=== PATIENT | female | born 1980 | race Caucasian/White ===

== ENCOUNTER 2019-02-01 07:23 | Day surgery (SDC) | payer SELFPAY ==
[2019-01-29 10:53] VITALS: BMI 22.7
[2019-02-01] MEDS ORDERED: LIDOCAINE HCL 1%, 10 MG/ML (20ML VIAL) ONE (08:12)
[2019-02-01] MEDS ORDERED: EPINEPHrine/PF 1 MG/1 ML (1:1,000) AMPULE ONE (08:12)
[2019-02-01] MEDS ORDERED: LIDOCAINE 1%/EPI 1:100000 (20 ML MULTI DOSE VIAL) ONE ×2 (08:12→09:20)
[2019-02-01] MEDS ORDERED: ceFAZolin SODIUM 1 GM VIAL ONE ×3 (08:52→09:22)
[2019-02-01] MEDS ORDERED: GENTAMICIN SO4 80 MG/2 ML VIAL ONE (08:52)
[2019-02-01] MEDS ORDERED: PROPOFOL 20 ML ONE ×2 (08:56)
[2019-02-01] MEDS ORDERED: SUCCINYLCHOLINE CHLORIDE 200 MG/10 ML SYRINGE ONE (08:56)
[2019-02-01] MEDS ORDERED: fentaNYL CITRATE 250 MCG/5 ML VIAL ONE (08:56)
[2019-02-01] MEDS ORDERED: MIDAZOLAM HCL 2 MG/2 ML SINGLE DOSE VIAL ONE (08:57)
[2019-02-01] MEDS ORDERED: EPHEDRINE SULFATE/0.9% NACL/PF 50 MG/10 ML SYRINGE NR ONE (08:57)
[2019-02-01] MEDS ORDERED: BUPIVACAINE HCL/PF 2.5 MG/ML - 30 ML VIAL IJ ONE (09:20)
[2019-02-01] MEDS ORDERED: ONDANSETRON 4 MG/2 ML VIAL ONE ×2 (09:22→11:27)
[2019-02-01] MEDS ORDERED: DEXAMETHASONE SOD PHOSPHATE 4 MG/1 ML VIAL ONE (09:22)
[2019-02-01] MEDS ORDERED: ROCURONIUM BROMIDE 50 MG/5 ML SYRINGE ONE (10:49)
--- NOTE | 2019-02-01 11:16 | OP ---
Operative Note - Note: Operative Date: 02/01/19 Pre-Operative Diagnosis: Bilateral acquired chest wall deformity status post bilateral mastectomy. History of textured implant devices Operation: 1. Right breast capsulotomy, removal and replacement of right breast implant. 2. Left breast capsulotomy, removal and replacement of left breast implant. 3. Subcutaneous tissue transfer to both breasts for reconstructive purposes Implants: as dictated Post-Operative Diagnosis: Same as Pre-op Surgeon: [employer] Principal: Kate Morgan Anesthesiologist/WEAPONS ENGINEER: Michelle Tariq Anesthesia: General, Local Specimens Removed: bilateral breast implants (textured), bilateral capsules Estimated Blood Loss (mls): 20 (ml) Fluid Volume Replaced (mls): 600 (ml LR) Operative Report Dictated: Yes
[2019-02-01] MEDS ORDERED: ONDANSETRON 4 MG/2 ML VIAL IVPUSH ONE (11:23)
[2019-02-01] MEDS ORDERED: oxyCODONE HCL 5 MG TABLET PO PRN (12:29)
[2019-02-01] MEDS ORDERED: ONDANSETRON 4 MG/2 ML VIAL IVPUSH PRN (12:29)
[2019-02-01] MEDS ORDERED: ACETAMINOPHEN 325 MG TABLET (FP) PO PRN (12:29)
[2019-02-01] MEDS ORDERED: LACTATED RINGERS SOLUTION 1,000 ML IV SCH (12:30)
[2019-02-01 14:29] VITALS: PULSE 61; TEMP 98.2
[2019-02-01 14:34] VITALS: BP 105/66
--- NOTE | 2019-02-02 18:30 | OP ---
DATE OF OPERATION: 02/01/2019 SURGEON: Edwar Leal MD MANUFACTURING PROCESS ENGINEER SURGEON: RIRI Mccoy PREOPERATIVE DIAGNOSES: 1. Bilateral acquired chest wall deformity status post bilateral mastectomy. 2. History of textured implant devices. POSTOPERATIVE DIAGNOSES: 1. Bilateral acquired chest wall deformity status post bilateral mastectomy. 2. History of textured implant devices. PROCEDURES: 1. Right breast capsulotomy removal and replacement of right breast implant. 2. Left breast capsulotomy removal and replacement of left breast implant. 3. Subcutaneous tissue transfer to both breasts for reconstructive purposes. OPERATIVE INDICATION: Patient is a young woman who underwent breast reconstruction after bilateral mastectomy and had textured shaped devices placed in a subglandular position. The risks and benefits of surgical versus nonsurgical alternatives as well as material complications were described to the patient regarding textured implant removal. This patient decided that she desired to have her implants and capsules removed for safety purposes. Patient was informed of the FDA and ASPS recommendations but decided to proceed anyway. OPERATIVE PROCEDURE IN DETAIL: Patient was taken to the operating room, and after induction of general anesthesia in supine position, both arms were extended and padded. Venodyne boots were placed. The entire chest wall was prepped with ChloraPrep solution over itself entire extent. At this point, the inframammary incisions, which had been made for the mastectomy, were then injected with 1% local lidocaine anesthesia with 1:100,000 epinephrine. At this point, the incision on the right breast, after time-out, was incised down through the skin, to subcutaneous tissue, through the subcutaneous tissue, down to the underlying capsule. At this point, a capsulectomy was performed around the textured device on the anterior position over the anterior extent of the capsule itself and on the posterior surface. More than 50% of the capsule was removed from the overlying muscle. The portion of the capsule, which contained Alloderm and no evidence of problems was left in place for thickness. At this point, the capsule itself was cauterized using the bipolar electrocautery, and all of the remaining capsule was cauterized. At this point, copious irrigation of the pocket was performed after removal of the implant, and the exact same procedure was carried out symmetrically on both sides. After removal of both capsules and implants, a new implant was chosen for placement. At this point, a NatCrowdFlowere Inspira Cohesive breast implant style SCF 520-mL volume was placed into the right and left pocket symmetrically. This showed good shape and contour, but because of the possibility of rippling and wrinkling in the subglandular position, suction was carried out on the lateral aspect of the thigh using the Bowser technique by hand suction. Approximately 10 mL of fatty material was placed into the upper inner quadrant of both breasts where previously rippling had been noted. Good shape and contour was seen, and the wounds were closed with interrupted 3-0 PDS sutures on the deep tissue, 3-0 in a deep dermal fashion, and 4-0 in the subcuticular fashion. All wounds were dressed sterilely with Dermabond and Steri-Strips. She was placed into a surgical bra, awakened, and transferred to the recovery room in satisfactory condition. EDWAR LEAL M.D. [id number]
--- NOTE | 2019-02-06 14:30 | SURG ---
Surgery Key Attendant Note Key Attendant: Kate Morgan PA-C (Suzy) Date of Service: 02/01/19 Diagnosis: Bilateral acquired chest wall deformity status post bilateral mastectomy. History of textured implant devices Procedure: Operation: 1. Right breast capsulotomy, removal and replacement of right breast implant. 2. Left breast capsulotomy, removal and replacement of left breast implant. 3. Subcutaneous tissue transfer to both breasts for reconstructive purposes I was present for the entirety of the operative procedure. For further detail, please refer to operative report. Visit type - Case Type Case Type: Scheduled - Emergency Emergency Visit: No - New patient This patient is new to me today: Yes Date on this admission: 02/06/19 - Critical Care Critical Care patient: No
--- NOTE | 2019-02-08 16:02 | PATH ---
Surgical Pathology Report Patient Name: BAO LEDESMA [facility]. Rec. #: [id number] /Age/Gender: 1980 (Age: 38) / F Account: [id number] Location: [facility] AMBULATORY Taken: 02/01/2019 Received: 02/01/2019 Reported: 02/08/2019 Physicians: Goyo Leal Specimen(s) Received A: RIGHT BREAST CAPSULE B: LEFT BREAST CAPSULE C: EXPLANTS BILATERAL BREASTS Clinical History History of breast cancer Textured implants, rule out ALCL in capsule Final Diagnosis A. RIGHT BREAST CAPSULE, EXCISION: FIBROUS TISSUE WITH MILD CHRONIC INFLAMMATION, CONSISTENT WITH BREAST CAPSULE. NO HISTOLOGIC EVIDENCE OF ANAPLASTIC LARGE CELL LYMPHOMA (ALCL). SEE COMMENT. B. LEFT BREAST CAPSULE, EXCISION: FIBROUS TISSUE WITH MILD CHRONIC INFLAMMATION, CONSISTENT WITH BREAST CAPSULE. NO HISTOLOGIC EVIDENCE OF ANAPLASTIC LARGE CELL LYMPHOMA (ALCL). SEE COMMENT. C. EXPLANT, BILATERAL BREAST, REMOVAL: CONSISTENT WITH BREAST IMPLANTS. GROSS EXAMINATION ONLY. COMMENT: Immunohistochemical stained slides (blocks A1, B1) performed at [place], [place] ([id number]) interpreted at [facility] show the following results: rare small lymphocytes highlighted by CD30; few scattered small lymphocytes express of an positivity for Granzyme B. CD4 show scattered non-specific staining. NOLA is noncontributory. AE1/AE3 and ALK stains are negative. No evidence of anaplastic large cell lymphoma (ALCL). Positive and negative controls (internal if applicable) show appropriate results. ___ Electronically Signed Cecelia Leggett M.D. Gross Description A. Received in formalin labeled "right capsule breast," is a 5.0 x 3.5 x 0.2 cm portion of aguilar fibrous tissue with attached fat, consistent with a fibrous capsule. No discrete lesion is identified. Foam Charger sections are submitted in 3 cassettes. B. Received in formalin labeled "left capsule breast," is a 3.5 x 3.0 x 0.3 cm aggregate of multiple aguilar portions of fibrous tissue, consistent with a breast capsule. No discrete lesions are identified. Foam Charger sections are submitted in one cassette. C. Received fresh labeled "explant bilateral breast," are 2 aguilar-yellow, intact breast implants averaging 13.5 cm in diameter and 4.5 cm in depth. No soft tissue is present. No sections are submitted, gross only. 02/05/2019 [facility]02/05/2019
== END 2019-02-01 14:35 | disposition home or self-care (01) ==
LOC: FASU 07:23
PROVIDERS: ATTEND Plastic Surgery
PROC: 0KBQ0ZZ Excision of Right Upper Leg Muscle, Open Approach (ICD-10-PCS; 2019-02-01)
PROC: 0HNV0ZZ Release Bilateral Breast, Open Approach (ICD-10-PCS; 2019-02-01)
PROC: 0HRV0JZ Replacement of Bilateral Breast with Synthetic Substitute, Open Approach (ICD-10-PCS; 2019-02-01)
PROC: 0HPU0JZ Removal of Synthetic Substitute from Left Breast, Open Approach (ICD-10-PCS; 2019-02-01)
PROC: 0HPT0JZ Removal of Synthetic Substitute from Right Breast, Open Approach (ICD-10-PCS; 2019-02-01)
PROC: 0HRV0JZ Replacement of Bilateral Breast with Synthetic Substitute, Open Approach (ICD-10-PCS; 2019-02-01)
PROC: 0HRV07Z Replacement of Bilateral Breast with Autologous Tissue Substitute, Open Approach (ICD-10-PCS; principal; 2019-02-01 09:37)
PROC: 0KBR0ZZ Excision of Left Upper Leg Muscle, Open Approach (ICD-10-PCS; 2019-02-01 09:37)
DX: M95.4 Acquired deformity of chest and rib (principal); Z90.13 Acquired absence of bilateral breasts and nipples; Z98.82 Breast implant status
CPT/HCPCS: 84703; 94760